=== PATIENT | male | born 1960 | race Caucasian/White ===

== ENCOUNTER 2020-12-16 13:59 | Emergency (ER) | payer OTHER ==
[~2020-12-16] VITALS: Ht 180.3 cm; Wt 106.8 kg
[2020-12-16 14:10] VITALS: BP 114/81; Ht 180.3 cm; Wt 106.8 kg
[2020-12-16] MEDS ORDERED: ALDACTONE25 MG PO (14:14)
[2020-12-16] MEDS ORDERED: SYNTHROID25 MCG (14:15)
[2020-12-16] MEDS ORDERED: METOPROLOL TART25 MG PO (14:15)
== END 2020-12-16 15:12 | disposition left against medical advice (07) ==
LOC: D.ER 13:59
DX: M79.604 Pain in right leg (principal)